=== PATIENT | female | born 1955 | race African-American/Black ===

== ENCOUNTER 2016-10-22 10:02 | Emergency (ER) | payer OTHER ==
--- NOTE | ~2016-10-22 | CR72 ---
[facility]. [facility] A Service of [facility] [place] RADIOLOGY TEXT RESULTS PATIENT: ALLEN KEBEDE LOCATION: SED : 51 UNIT #: [id number] AGE: [address]: Refugio Davalos MD SEX: F ORDER DR: [id number] [address] [address] [id number] E MR#: [id number] Acc #: [id number] NAME: ALLEN KEBEDE : 1955 SEX: F STUDY DATE/TIME: 10/22/2016 10:05 UNIT: SED ROOM: STUDY DESCRIPTION: CR Chest Single View Portable Attending Physician: Refugio Davalos M.D. Ordering Physician: Refugio Davalos M.D. Primary Care Physician: Mandie Reddy M.D. MEDICAL IMAGING REPORT This report is preliminary unless electronic signature is present. EXAM Portable chest HISTORY Chest pain onset today with hypertension. TECHNIQUE A single AP view of the chest was obtained and compared with 01/29/2012. FINDINGS A single AP portable view of the chest shows both lungs to be clear. The heart is normal in size. The mediastinal contour is normal. No significant bone abnormalities are seen. IMPRESSION Normal portable chest. Dictated by... Kyree Subramanian M.D. THIS IS AN ELECTRONICALLY VERIFIED REPORT Kyree Subramanian M.D. at 10/23/2016 10:46 AM LEVI/debby TD: 10/22/2016 15:16 JOB #: [id number] MEDICAL IMAGING REPORT Page 1 of 1
--- NOTE | ~2016-10-22 | EKG ---
PATIENT: ALLEN KEBEDE UNIT #: [id number] Ventricular Rate: 76 BPM Atrial Rate: 76 BPM P-R Interval: 162 ms QRS Duration: 88 ms Q-T Interval: 378 ms QTC Calculation(Bezet): 425 ms P [employer]: 76 degrees Calculated R [employer]: 62 degrees Calculated T [employer]: 86 degrees Diagnosis Line: Normal sinus rhythm Diagnosis Line: Voltage criteria for left ventricular hypertrophy Diagnosis Line: Otherwise normal ECG Diagnosis Line: When compared with ECG of 30-APR-2016 22:48, Diagnosis Line: No significant change was found Diagnosis Line: Confirmed by BETO BRAGA MD ([id number]) on 10/27/2016 Diagnosis Line: 11:10:04 PM INTERPRETING MD: MARIA LUZ ISBELL
[~2016-10-22 10:02] MED LIST: ALPRAZOLAM PO; AMBIEN10 MG PO; AMOXICILLIN PO; BENICAR PO; CARAFATE1 GM; CLONIDINE HCL0.1 MG PO; ESTRACE42.5 GM VG; FEMHRT 0.5 MG/21 TAB PO; FISH OIL 1,0001 EAC1 PO; FLAX SEED OIL1000 M1 PO; GINGER ROOT550 M1 PO; GINKGO BILOBA40 M1 PO; GRAM-O-LECI1000 MG PO; LEVAQUIN PO; LOSARTAN POTASS50 MG PO; METOPROLOL SUCC25 MG PO; METOPROLOL TAR100 MG PO; METOPROLOL TAR25 MG PO; MULTI VITAMIN1 EACH PO; NEPHROCAPS1 CAP PO; OMEGA 3 FISH1 CAP.EC PO; PREVACID PO; PROBIOTIC DIGE1 EACH PO; SPECTRAVITE PO; SPIRULINA PO; [UNRECOGNIZED DRUG - OTHER]; [UNRECOGNIZED DRUG - OTHER] PO
[2016-10-22 10:37] LABS: BASOPHIL# 0.1 X10e3 (0-0.3); BASOPHIL% 0.6 % (0-2.5); EOSINOPHIL# 0.1 X10e3 (0-0.7); EOSINOPHIL% 0.6 % (0.0-7.0); HEMATOCRIT 39.6 % (35.0-45.0); LYMPHOCYTE% 21.1 % (17.0-45.0); MEAN CELL VOLUME 95.7 FL (83-96); MEAN CORPUSCULAR HEMOGLOBIN 31.6 PG (28-34); MEAN PLATELET VOLUME 9.3 FL (6.5-11.5); MONOCYTE# 0.7 X10e3 (0-1.0); MONOCYTE% 7.4 % (3.0-12.0); NEUTROPHIL# 6.7 X10e3 (1.5-7.1); NEUTROPHIL% 70.3 % (40-75); PLATELET COUNT 213 X10e3 (140-420); RED BLOOD COUNT 4.14 X10e (3.90-5.30); RED CELL DISTRIBUTION WIDTH 13.9 % (11.0-15.5); WHITE BLOOD COUNT 9.5 X10e3 (4.0-10.5)
[2016-10-22 10:38] LABS: DIFF IND NO
[2016-10-22 10:46] LABS: INR 0.9; PROTHROMBIN TIME (PATIENT) 10.5 SECONDS (9.5-12.4)
[2016-10-22 10:47] LABS: POC - CKMB 2.8 ng/mL (0.0-7.9); POC - TROPONIN <0.05 ng/mL (<=0.05)
[2016-10-22 10:53] LABS: PARTIAL THROMBOPLASTIN TIME 28.8 SECONDS (25.6-38.1)
[2016-10-22 10:55] LABS: ALKALINE PHOSPHATASE 73 U/L (32-92); ALT (SGPT) 20 U/L (10-40); AST (SGOT) 27 U/L (10-42); BILIRUBIN, DIRECT 0.1 mg/dL (0.0-0.2); BILIRUBIN,INDIRECT 0.6 mg/dL (0.0-0.9); BILIRUBIN,TOTAL 0.7 mg/dL (0.2-2.0); BLOOD UREA NITROGEN 13 mg/dL (9-23); BUN/CREATININE RATIO 14.44; CALCIUM SERUM 10.1 mg/dL (8.4-10.2); CARBON DIOXIDE 25 mmol/L (22-31); CHLORIDE 97 mmol/L (100-111); CREATININE SERUM 0.9 mg/dL (0.6-1.4); GLOM FILT RATE Estimated ABOVE60 mL/min (>60); GLUCOSE FASTING 104 mg/dL (70-110); POTASSIUM 3.8 mmol/L (3.5-5.1); PROTEIN TOTAL SERUM 7.4 g/dL (6.0-8.3); SODIUM 128 mmol/L (135-145)
[2016-10-22 12:18] LABS: POC - MYOGLOBIN 99.5 ng/mL (0.0-169.0); POC - TROPONIN <0.05 ng/mL (<=0.05)
== END 2016-10-22 13:17 | disposition home or self-care (01) ==
LOC: SED 10:02
PROVIDERS: Emergency Medicine
DX: R07.9 Chest pain, unspecified (principal); I10 Essential (primary) hypertension; K21.9 Gastro-esophageal reflux disease without esophagitis; Z88.2 Allergy status to sulfonamides
CPT/HCPCS: 36415; 71010; 80048; 80076; 82553; 83874; 83880; 84484; 85025; 85610; 85730; 93005; 96374; 96376; 99284

== ENCOUNTER 2016-10-24 22:50 | Emergency (ER) | payer OTHER ==
--- NOTE | ~2016-10-24 | EKG ---
PATIENT: ALLEN KEBEDE UNIT #: [id number] Ventricular Rate: 76 BPM Atrial Rate: 76 BPM P-R Interval: 158 ms QRS Duration: 86 ms Q-T Interval: 392 ms QTC Calculation(Bezet): 441 ms P [place]: 76 degrees Calculated R [place]: 58 degrees Calculated T [place]: 80 degrees Diagnosis Line: Normal sinus rhythm Diagnosis Line: Left ventricular hypertrophy Diagnosis Line: Abnormal ECG Diagnosis Line: When compared with ECG of 22-OCT-2016 10:01, Diagnosis Line: (unconfirmed) Diagnosis Line: No significant change was found Diagnosis Line: Confirmed by BETO BRAGA MD ([id number]) on 10/27/2016 Diagnosis Line: 11:12:16 PM INTERPRETING MD: MARIA LUZ ISBELL
== END 2016-10-25 01:00 | disposition home or self-care (01) ==
LOC: SED 22:50
DX: I10 Essential (primary) hypertension (principal); F41.9 Anxiety disorder, unspecified
CPT/HCPCS: 93005; 96374; 96375; 99283; J0360

== ENCOUNTER 2016-11-06 10:15 | Emergency (ER) | payer OTHER ==
[2016-11-06] MEDS ORDERED: CLONIDINE HCL0.1 MG PO (11:27)
[2016-11-06] MEDS ORDERED: METOPROLOL TAR25 MG PO (11:28)
[2016-11-06] MEDS ORDERED: COZAAR100 MG PO (11:28)
[2016-11-06] MEDS ORDERED: PREVACID15 M1 PO (11:29)
[2016-11-06] MEDS ORDERED: ALPRAZOLAM PO (11:30)
== END 2016-11-06 10:45 | disposition left against medical advice (07) ==
LOC: CED 10:15
DX: I10 Essential (primary) hypertension (principal); Z88.2 Allergy status to sulfonamides
CPT/HCPCS: 99282

== ENCOUNTER 2016-11-06 12:01 | Emergency (ER) | payer OTHER ==
[~2016-11-06 12:01] MED LIST changes: +COZAAR100 MG PO; +PREVACID15 M1 PO
== END 2016-11-06 12:20 | disposition home or self-care (01) ==
LOC: SED 12:01
DX: I10 Essential (primary) hypertension (principal); F41.9 Anxiety disorder, unspecified; K21.9 Gastro-esophageal reflux disease without esophagitis; Z90.89 Acquired absence of other organs; Z98.51 Tubal ligation status
CPT/HCPCS: 99283

== ENCOUNTER 2016-11-09 22:09 | Emergency (ER) | payer OTHER ==
--- NOTE | ~2016-11-09 | EKG ---
PATIENT: ALLEN KEBEDE UNIT #: [id number] Ventricular Rate: 65 BPM Atrial Rate: 65 BPM P-R Interval: 168 ms QRS Duration: 86 ms Q-T Interval: 398 ms QTC Calculation(Bezet): 413 ms P [place]: 74 degrees Calculated R [place]: 67 degrees Calculated T [place]: 82 degrees Diagnosis Line: Normal sinus rhythm Diagnosis Line: Voltage criteria for left ventricular hypertrophy Diagnosis Line: Borderline ECG Diagnosis Line: When compared with ECG of 24-OCT-2016 22:42, Diagnosis Line: No significant change was found Diagnosis Line: Confirmed by BETO BRAGA MD ([id number]) on 11/12/2016 Diagnosis Line: 8:02:48 PM INTERPRETING MD: MARIA LUZ ISBELL
--- NOTE | ~2016-11-09 | CT71 ---
[facility] A Service [facility] RADIOLOGY TEXT RESULTS PATIENT: ALLEN KEBEDE LOCATION: SED : 53 UNIT #: [id number] AGE: [address]: Ted Garcia MD SEX: F ORDER DR: [id number] [place] [id number] E MR#: [id number] Acc #: [id number] NAME: ALLEN KEBEDE : 1955 SEX: F STUDY DATE/TIME: 11/09/2016 22:47 UNIT: SED ROOM: STUDY DESCRIPTION: CT Head Wo Contrast Attending Physician: Ted Garcia M.D. Ordering Physician: Ted Garcia M.D. Primary Care Physician: Mandie Reddy M.D. MEDICAL IMAGING REPORT This report is preliminary unless electronic signature is present. EXAM Head CT 11/09/2016 at 22:47 INDICATION Hypertension today with associated headache. Blood pressure is 233/116. COMPARISON None. TECHNIQUE This CT examination was performed with one or more of the following radiation dose reduction techniques: automatic exposure control, adjustment of mA and/or kV according to patient size, and iterative reconstruction. FINDINGS Axial noncontrast images were obtained from the skull base to the vertex. Ventricular size and configuration are normal. There is no evidence of acute infarct or hemorrhage. There are no extraaxial fluid collections. No mass lesion or mass effect is seen. There are no skull fractures. IMPRESSION Normal noncontrast head CT. Dictated by... Kyree Mccoy Jr., M.D. THIS IS AN ELECTRONICALLY VERIFIED REPORT Kyree Mccoy Jr., M.D. at 11/10/2016 11:14 AM RLK/bhaktis [facility] A Service [facility] RADIOLOGY TEXT RESULTS PATIENT: ALLEN KEBEDE LOCATION: SED : 53 UNIT #: [id number] AGE: [address]: Ted Garcia MD SEX: F ORDER DR: TD: 11/10/2016 07:24 JOB #: [id number] MEDICAL IMAGING REPORT Page 1 of 1
[2016-11-09 22:28] LABS: URINE SOURCE CLEAN CATCH
[2016-11-09 22:30] LABS: MICRO INDICATED? YES; URINE APPEARANCE CLEAR; URINE BILIRUBIN NEG (NEG); URINE BLOOD TRACE-LYSED (NEG); URINE COLOR YELLOW; URINE GLUCOSE NEG (NORM); URINE KETONE NEG (NEG); URINE LEUKOCYTE ESTERASE NEG (NEG); URINE NITRATE NEG (NEG); URINE PROTEIN 2+ (NEG); URINE SPECIFIC GRAVITY <=1.005 (1.003-1.035); URINE UROBILINOGEN 0.2 MG/DL (NORM)
[2016-11-09 22:33] LABS: CULTURE INDICATED? NO; URINE BACTERIA NEG (NEG); URINE SQUAMOUS EPITHELIAL CELL FEW /[HPF]; URINE WBC NEG /[HPF] (0-5)
[2016-11-09 23:12] LABS: BASOPHIL# 0.1 X10e3 (0-0.3); BASOPHIL% 0.8 % (0-2.5); DIFF IND NO; EOSINOPHIL# 0.1 X10e3 (0-0.7); EOSINOPHIL% 0.7 % (0.0-7.0); HEMATOCRIT 35.8 % (35.0-45.0); HEMOGLOBIN 12.1 gm/dL (12.0-16.0); LYMPHOCYTE# 2.1 X10e3 (1.0-3.5); LYMPHOCYTE% 26.1 % (17.0-45.0); MEAN CELL VOLUME 95.3 FL (83-96); MEAN CORPUSCULAR HEMOGLOBIN 32.2 PG (28-34); MEAN CORPUSCULAR HGB CONC 33.8 g/dL (30-36); MEAN PLATELET VOLUME 9.3 FL (6.5-11.5); MONOCYTE# 0.7 X10e3 (0-1.0); NEUTROPHIL# 5.1 X10e3 (1.5-7.1); NEUTROPHIL% 63.4 % (40-75); PLATELET COUNT 219 X10e3 (140-420); RED BLOOD COUNT 3.76 X10e (3.90-5.30); RED CELL DISTRIBUTION WIDTH 13.4 % (11.0-15.5); WHITE BLOOD COUNT 8.1 X10e3 (4.0-10.5)
[2016-11-09 23:27] LABS: BUN/CREATININE RATIO 12.3; CALCIUM SERUM 10.2 mg/dL (8.4-10.2); CREATININE SERUM 1.3 mg/dL (0.6-1.4); GLOM FILT RATE Estimated 50.6 mL/min (>60)
[2016-11-09 23:28] LABS: POC - CKMB 1.6 ng/mL (0.0-7.9); POC - TROPONIN <0.05 ng/mL (<=0.05)
== END 2016-11-10 01:21 | disposition home or self-care (01) ==
LOC: SED 22:09
PROVIDERS: Emergency Medicine
DX: I10 Essential (primary) hypertension (principal); R51 Headache; R00.2 Palpitations; Z88.2 Allergy status to sulfonamides; Z79.899 Other long term (current) drug therapy
CPT/HCPCS: 36415; 70450; 80048; 81003; 82553; 83874; 84484; 85025; 93005; 96374; 96375; 99284; J2060